=== PATIENT | female | born 1960 | race Two or more races ===

== ENCOUNTER 2023-01-27 12:45 | Inpatient (IN) | payer OTHER ==
[~2023-01-27] VITALS: Ht 172.7 cm; Wt 64.4 kg
[2023-01-27] MEDS ORDERED: SYNTHROID50 MCG PO (15:02)
[2023-01-27] MEDS ORDERED: CRESTOR20 MG PO (15:03)
[2023-01-27] MEDS ORDERED: METFORMIN HCL500 M3 PO (15:03)
[2023-01-27] MEDS ORDERED: ZETIA10 MG PO (15:03)
[2023-01-27] MEDS ORDERED: XANAFLEX (15:04)
[2023-01-27] MEDS ORDERED: CATAFLAN (15:04)
[2023-01-29] MEDS ORDERED: CLONAZEPAM0.5 MG (09:55)
[2023-01-29] MEDS ORDERED: DICLOFENAC POTA50 MG (09:55)
[2023-01-29] MEDS ORDERED: ROSUVASTATIN CA10 MG (09:55)
[2023-01-29] MEDS ORDERED: TIZANIDINE HCL4 MG (09:55)
== END 2023-02-02 09:11 | disposition home or self-care (01) | DRG 331 ==
LOC: O/R 01-29 08:35 → SURH 01-29 08:35 → O/R 01-29 15:40 → SURH 01-29 15:54
PROVIDERS: ADMIT Colon & Rectal Surgery; ATTEND Colon & Rectal Surgery
PROC: 07BB4ZZ Excision of Mesenteric Lymphatic, Percutaneous Endoscopic Approach (ICD-10-PCS; 2023-01-29)
PROC: 0DTF4ZZ Resection of Right Large Intestine, Percutaneous Endoscopic Approach (ICD-10-PCS; principal; 2023-01-29 13:15)
DX: C18.0 Malignant neoplasm of cecum (principal); R59.0 Localized enlarged lymph nodes; E87.6 Hypokalemia; E11.9 Type 2 diabetes mellitus without complications; Z79.4 Long term (current) use of insulin; E03.9 Hypothyroidism, unspecified; E78.5 Hyperlipidemia, unspecified

== ENCOUNTER 2025-04-24 13:11 | Emergency (ER) | payer OTHER ==
[~2025-04-24] VITALS: Ht 172.7 cm; Wt 64.4 kg
[~2025-04-24 13:11] MED LIST: CATAFLAN; CLONAZEPAM0.5 MG; CRESTOR20 MG PO; DICLOFENAC POTA50 MG; METFORMIN HCL500 M3 PO; ROSUVASTATIN CA10 MG; SYNTHROID50 MCG PO; TIZANIDINE HCL4 MG; XANAFLEX; ZETIA10 MG PO
[2025-04-24] MEDS ORDERED: FELDENE20 MG PO (13:24)
[2025-04-24] MEDS ORDERED: ORPHENADRINE CITRATE 30 MG/ML AMPUL IM ONE (14:45)
[2025-04-24] MEDS ORDERED: 0.9 % SODIUM CHLORIDE 500 ML IV ONE (14:45)
[2025-04-24 15:48] LABS: BASO % 0.4 % (0.1-1.2); EOS # 0.01 (0.04-0.54); EOS % 0.2 % (0.7-7.0); LYMPH # 1.17 (1.18-3.74); LYMPH % 21.8 % (19.3-53.1); MEAN PLATELET VOLUME 8.70 fl (9.4-12.4); MONO # 0.33 (0.24-0.82); MONO % 6.2 % (4.7-12.5); NEUT # 3.83 (1.56-6.13); NEUT % 71.4 % (34.0-71.1); RED CELL DISTRIBUTION WIDTH 12.6 % (11.6-14.4)
[2025-04-24 16:16] LABS: ALT/SGPT 25.0 U/L (12-78); AST/SGOT 15.0 U/L (15-37); BILIRUBIN TOTAL 0.52 mg/dL (0.3-1.2); BUN CREA RATIO 18.0 (7.0-25.0); CREATININE SERUM 0.84 mg/dL (0.55-1.02); GFR 68.04; GLOBULINA 4.2 G/DL (2.4-3.5); GLUCOSE FASTING 98.0 mg/dL (65-100); OSMOLALITY SERUM 288.0 MOSM/KG (275-295)
[2025-04-24 19:30] LABS: URINE APPEARANCE Clear; URINE BILIRRUBIN Negative (NEGATIVE); URINE BLOOD Large; URINE COLOR Yellow; URINE GLUCOSE Negative (NEGATIVE); URINE KETONE 15 (NEGATIVE); URINE LEUKOCYTE Trace; URINE NITRATE Negative; URINE PROTEIN Negative (NEGATIVE); URINE UROBILINOGEN 0.2 E.U./dl
[2025-04-24 19:33] LABS: URINE BACTERIA 64.7 uL (0.0-1933); URINE EPITHELIAL CELLS 6.6 uL (0.0-38.8); URINE RBC 312.9 uL (0.0-20.8); URINE WBC 21.6 uL (0.0-23.2)
[2025-04-24 19:45] LABS: URINE CAST 0.00 uL (0.0-1.40)
[2025-04-24] MEDS ORDERED: TAMS0.4C PO (20:15)
[2025-04-24] MEDS ORDERED: TAMSULOSIN HCL 0.4 MG CAP PO ONE (20:30)
== END 2025-04-24 21:11 ==
LOC: ER 13:11
PROVIDERS: Emergency Medicine
DX: N20.1 Calculus of ureter (principal); R10.9 Unspecified abdominal pain; I10 Essential (primary) hypertension; E03.8 Other specified hypothyroidism; E11.9 Type 2 diabetes mellitus without complications; Z79.84 Long term (current) use of oral hypoglycemic drugs; Z88.1 Allergy status to other antibiotic agents; Z88.8 Allergy status to other drugs, medicaments and biological substances
CPT/HCPCS: 36415; 74177; 96365; 96366; 96372; 99284; J2360; J7042; Q9965

== ENCOUNTER 2025-06-05 06:00 | Day surgery (SDC) | payer OTHER ==
[~2025-06-05 06:00] MED LIST changes: +FELDENE20 MG PO; +TAMS0.4C PO
[2025-06-06] MEDS ORDERED: fentaNYL CITRATE 50 MCG/ML AMPUL IV PUSH ONE (14:30)
[2025-06-06] MEDS ORDERED: MIDAZOLAM HCL 2 MG/2 ML VIAL IV ONE (14:30)
[2025-06-06] MEDS ORDERED: ONDANSETRON HCL 2 MG/ML VIAL IV ONE (14:30)
[2025-06-06] MEDS ORDERED: DIPHENHYDRAMINE HCL 50 MG/ML VIAL 1ML IV ONE (14:30)
== END 2025-06-06 15:30 | disposition home or self-care (01) ==
LOC: AMB-ENDOS 06:00
PROVIDERS: ATTEND Colon & Rectal Surgery
DX: D12.3 Benign neoplasm of transverse colon (principal); K63.5 Polyp of colon; Z85.038 Personal history of other malignant neoplasm of large intestine; K57.30 Diverticulosis of large intestine without perforation or abscess without bleeding; Z88.8 Allergy status to other drugs, medicaments and biological substances